=== PATIENT | female | born 1950 | race Caucasian/White ===

== ENCOUNTER → 2017-02-27 | Outpatient (CLI) | payer MEDICARE, OTHER ==
[~2017-02-27] MED LIST: CLEOCIN150 MG PO; MOTRIN800 MG PO
== END | disposition home or self-care (01) ==
LOC: RAD 14:34
DX: R05 Cough (principal)

== ENCOUNTER → 2017-09-01 | Outpatient (CLI) | payer MEDICARE, OTHER ==
[~2017-09-01] MED LIST changes: +ASPIR 8181 MG PO; +ATENOLOL25 MG PO; +B COMPLEX1 EACH PO; +CALCIUM 1,0001 EACH PO; +COZAAR25 M1 PO; +FISH OIL 1,0001 EAC5 PO; +LOVASTATIN20 MG PO; +VITAMIN D31000 UNI1 PO
--- NOTE | ~2017-09-01 | ST ---
[place], [place] EXERCISE STRESS TEST REPORT NAME: [facility]OW[facility]ING [facility]: [id number] UNIT #: [id number] ROOM: DOCTOR: EDUARDA ROSENBERG MD BIRTHDATE: [birth year] DOS: 09/01/2017 LEXISCAN PORTION OF THE LEXISCAN CARDIOLITE Baseline cardiogram, sinus rhythm. With Lexiscan, no new EKG changes. No chest pain. Blood pressure and heart rate response was normal. Nuclear images will be reported separately. EDUARDA ROSENBERG MD CM:STRESS:EXERCISE STRESS TEST REPORT [id number] EDUARDA ROSENBERG MD
== END | disposition home or self-care (01) ==
LOC: CARD 03:21
DX: R06.02 Shortness of breath (principal); R07.9 Chest pain, unspecified; R55 Syncope and collapse; Z87.898 Personal history of other specified conditions

== ENCOUNTER 2017-12-03 16:20 | Inpatient (IN) | payer MEDICARE, OTHER ==
[~2017-12-03] VITALS: Ht 167.6 cm; Wt 84.2 kg
--- NOTE | ~2017-12-03 | PROC NOTE ---
[place], [place] PROCEDURE NOTE NAME: JENNIFER BOWLING [facility] #: [id number] UNIT #: [id number] ROOM: 407 DOCTOR: AMEENA BLANKENSHIP BIRTHDATE: [birth year] DOS: 12/04/2017 ORDERING PHYSICIAN: Angel Bui DO HISTORY: The patient is a 66-year-old female admitted to the Emergency Department on 12/03/2017 with headache and viral symptoms for 3-4 days in addition to subjective fevers, chills, shortness of breath and nonproductive cough. The patient has primary diagnosis of pneumonia and secondary diagnoses of hypertension, arthritis and shortness of breath. Patient interviewed prior to MBS. She denied having any difficulty swallowing with solids or liquids. She is a current smoker and denies any unexpected weight loss. Oral mechanical exam showed labial and lingual strength and range of motion within functional limits in addition to strong volitional throat clear. METHODS AND MATERIALS USED FOR EXAM: The patient was positioned in the lateral plane and the exam was viewed under fluoroscopy. A variety of substances were used during this examination including barium coated applesauce, barium coated turkey sandwich, nectar- like liquid barium, and thin liquid barium. The patient was self-fed and all liquids were administered via cup. ORAL PHASE: The patient demonstrated an oral phase that was within functional limits. Mastication of the bolus, lingual coordination and AP transfer was within functional limits. She demonstrated good control of the bolus and had a timely oral phase. The patient able to clear oral cavity with one swallow and no oral residue was remaining following all trials. PHARYNGEAL PHASE: The patient demonstrated pharyngeal phase that was within functional limits. Initiation of pharyngeal swallow slightly delayed to the level of the vallecula on sips of thin liquid barium; however, no penetration aspiration observed with all trial consistencies. The patient passed bolus with single swallows and no pharyngeal residues remained. The patient demonstrated naturally large sip sizes, but no penetration aspiration observed. ESOPHAGEAL PHASE: This phase was not formally assessed during the examination. IMPRESSION: This patient presents with a swallow that is within functional limits. Oral and pharyngeal phase is functional for regular diet as demonstrated during evaluation. RECOMMENDATIONS: The patient recommended regular diet with thin liquids. The patient to utilize safe swallowing strategies of small, single sips of liquid and small bites throughout a meal, sit upright during all p.o. intake. No Speech Therapy followup is needed as the patient presents with a functional swallow. Please contact Speech Therapy with any questions. Thank you for your consultation. [place], [place] PROCEDURE NOTE NAME: JENNIFER BOWLING UNIT #: [id number] ROOM: [facility] DOCTOR: AMEENA BLANKENSHIP BIRTHDATE: [birth year] Ameena Blankenship ANGEL BUI DO CM:PROCNOTE:PROCEDURE NOTE [id number] ANGEL JOHNSON
--- NOTE | ~2017-12-03 | EKG ---
[place], [place] ELECTROCARDIOGRAM REPORT NAME: JENNIFER BOWLING UNIT #: [id number] ROOM: 407 DOCTOR: ARLIN DRAFT REPORT BIRTHDATE: [birth year] [facility] Test Date: 2017-12-03 Test Time: 16:49:04 Pat Name: JENNIFER BOWLING Department: Room: 407 Gender: F Polymer Chemist: SHAWNA : 1950 Requested By: KAREN WILCOX Order Number: [id number] Reading MD: Anjelica Raman MD Measurements Intervals [place] Rate: 81 P: 34 NM: 60 QRS: 7 QRSD: 101 T: 45 QT: 462 QTc: 537 Interpretive Statements Sinus rhythm Supraventricular bigeminy Short NM interval Left atrial enlargement RSR' in V1 or V2, probably normal variant Electronically Signed On 12-07-2017 13:54:29 PDT by Anjelica Raman MD CM:EKGRPT:ELECTROCARDIOGRAM REPORT [id number] KAREN BACK DRAFT REPORT KAREN WILCOX DO
[2017-12-03 16:24] VITALS: BP 99/48
[2017-12-03 17:01] LABS: BASO % 0.3 % (0.0-1.0); EOS % 0.1 % (1.0-4.0); HEMATOCRIT 36.2 % (37.0-47.0); HEMOGLOBIN 12.1 g/dl (12.0-16.0); LYMPH # 0.8 10*3/uL (1.3-4.4); LYMPH % 5.5 % (27.0-41.0); MEAN CORPUSCULAR HGB 28.7 pg (27.0-31.0); MEAN CORPUSCULAR HGB CONC 33.4 g/dl (33.0-37.0); MEAN PLATELET VOLUME 10.6 fl (9.6-12.3); MONO # 0.7 10*3/uL (0.1-1.0); MONO % 4.7 % (3.0-9.0); NEUT # 12.3 10*3/uL (2.3-7.9); NEUT % 88.4 % (47.0-73.0); PLATELET COUNT AUTOMATED 166 10*3/uL (130-400); RED BLOOD COUNT 4.21 10*6/uL (4.10-5.10); WHITE BLOOD COUNT 13.9 10*3/uL (4.8-10.8)
[2017-12-03 17:17] LABS: ACT PARTIAL THROMBO TIME 26.1 SECONDS (20.8-31.5)
[2017-12-03 17:20] LABS: ALBUMIN 2.7 gm/dl (3.1-4.5); ALKALINE PHOSPHATASE 110 U/L (45-117); BUN 20 mg/dl (7-24); CHLORIDE 102 mmol/L (98-107); CREATININE 1.85 mg/dL (0.55-1.02); LIPASE 121 U/L (73-393); POTASSIUM 3.2 mmol/L (3.5-5.1); SGOT/AST 11 IU/L (3-35); SGPT/ALT 15 U/L (12-78); SODIUM 133 mmol/L (136-145)
[2017-12-03 17:21] LABS: TROPONIN I < 0.015 ng/ml (<0.045)
[2017-12-03 19:45] VITALS: BP 117/74
[2017-12-03 20:00] VITALS: BP 117/74
[2017-12-04] VITALS: BP 129/58
[2017-12-04 06:13] LABS: HEMATOCRIT 37.7 % (37.0-47.0); HEMOGLOBIN 12.3 g/dl (12.0-16.0); MEAN CELL VOLUME 87.7 fl (81.0-99.0); MEAN CORPUSCULAR HGB 28.6 pg (27.0-31.0); MEAN CORPUSCULAR HGB CONC 32.6 g/dl (33.0-37.0); MEAN PLATELET VOLUME 11.2 fl (9.6-12.3); PLATELET COUNT AUTOMATED 180 10*3/uL (130-400); RED CELL DISTRI WIDTH 13.1 % (0-14.5); WHITE BLOOD COUNT 12.6 10*3/uL (4.8-10.8)
[2017-12-04 06:14] LABS: CREATININE 1.6 mg/dL (0.55-1.02); FREE T4 1.13 ng/dl (0.76-1.46)
[2017-12-04 06:21] LABS: THYROID STIM HORMONE (HS) 0.272 uIU/ml (0.358-4.75)
[2017-12-04 06:23] LABS: POTASSIUM 4.1 mmol/L (3.5-5.1)
[2017-12-04 06:57] LABS: TOTAL CELLS COUNTED 100 #CELLS
[2017-12-04 07:02] LABS: PLATELET SUFFICIENCY NORMAL (NORMAL)
[2017-12-04 07:17] LABS: BILIRUBIN NEGATIVE (NEGATIVE); BLOOD TRACE-INTACT (NEGATIVE); CLARITY CLEAR (CLEAR); COLOR YELLOW (YELLOW); GLUCOSE NEGATIVE (NEGATIVE); KETONE NEGATIVE (NEGATIVE); LEUKO ESTERASE NEGATIVE (NEGATIVE); NITRITE NEGATIVE (NEGATIVE)
[2017-12-04 07:25] LABS: BACTERIA TRACE; EPITHELIAL CELLS 0-2
[2017-12-04 09:37] LABS: VITAMIN D, 25-HYDROXY 84.3 ng/mL (30-100)
[2017-12-04 12:00] VITALS: BP 113/60
[2017-12-04 16:00] VITALS: BP 114/68
[2017-12-04 20:00] VITALS: BP 136/67
[2017-12-05] VITALS: BP 116/68
[2017-12-05 06:09] LABS: BASO % 0.2 % (0.0-1.0); HEMOGLOBIN 10.3 g/dl (12.0-16.0); LYMPH # 1.4 10*3/uL (1.3-4.4); LYMPH % 11.3 % (27.0-41.0); MEAN CELL VOLUME 87.9 fl (81.0-99.0); MEAN CORPUSCULAR HGB 28.3 pg (27.0-31.0); MEAN CORPUSCULAR HGB CONC 32.2 g/dl (33.0-37.0); MEAN PLATELET VOLUME 11.3 fl (9.6-12.3); MONO # 0.7 10*3/uL (0.1-1.0); MONO % 5.5 % (3.0-9.0); NEUT # 10.4 10*3/uL (2.3-7.9); NEUT % 82.4 % (47.0-73.0); PLATELET COUNT AUTOMATED 174 10*3/uL (130-400); RED BLOOD COUNT 3.64 10*6/uL (4.10-5.10); RED CELL DISTRI WIDTH 13.3 % (0-14.5); WHITE BLOOD COUNT 12.6 10*3/uL (4.8-10.8)
[2017-12-05 06:24] LABS: CREATININE 1.34 mg/dL (0.55-1.02); POTASSIUM 4.1 mmol/L (3.5-5.1)
[2017-12-05 08:00] VITALS: BP 125/60
[2017-12-05 12:00] VITALS: BP 127/56
[2017-12-05 16:00] VITALS: BP 131/60
[2017-12-05 20:00] VITALS: BP 129/70
[2017-12-06] VITALS: BP 119/60
[2017-12-06 06:25] LABS: BASO % 0.3 % (0.0-1.0); EOS # 0.1 10*3/uL (0.0-0.4); EOS % 1.6 % (1.0-4.0); HEMATOCRIT 31.9 % (37.0-47.0); HEMOGLOBIN 10.1 g/dl (12.0-16.0); LYMPH # 1.9 10*3/uL (1.3-4.4); LYMPH % 27.4 % (27.0-41.0); MEAN CELL VOLUME 89.9 fl (81.0-99.0); MEAN CORPUSCULAR HGB 28.5 pg (27.0-31.0); MEAN CORPUSCULAR HGB CONC 31.7 g/dl (33.0-37.0); MEAN PLATELET VOLUME 10.7 fl (9.6-12.3); MONO # 0.5 10*3/uL (0.1-1.0); NEUT # 4.4 10*3/uL (2.3-7.9); NEUT % 62.8 % (47.0-73.0); PLATELET COUNT AUTOMATED 174 10*3/uL (130-400); RED BLOOD COUNT 3.55 10*6/uL (4.10-5.10); RED CELL DISTRI WIDTH 13.7 % (0-14.5)
[2017-12-06 06:37] LABS: CREATININE 1.41 mg/dL (0.55-1.02); POTASSIUM 4.5 mmol/L (3.5-5.1)
[2017-12-06 08:00] VITALS: BP 151/76
[2017-12-06] MEDS ORDERED: DOXYCYCLINE100 M3 PO (10:11)
== END 2017-12-06 10:27 | disposition home or self-care (01) | DRG 871 ==
LOC: ED 16:20 → EDHOLD 18:01 → 4E 18:01
PROVIDERS: Emergency Medicine; Internal Medicine
PROC: BD11YZZ Fluoroscopy of Esophagus using Other Contrast (ICD-10-PCS; principal; 2017-12-04)
PROC: BD1BYZZ Fluoroscopy of Mouth/Oropharynx using Other Contrast (ICD-10-PCS; principal; 2017-12-04)
DX: A41.9 Sepsis, unspecified organism (principal); J18.1 Lobar pneumonia, unspecified organism; N17.0 Acute kidney failure with tubular necrosis; E43 Unspecified severe protein-calorie malnutrition; E87.1 Hypo-osmolality and hyponatremia; R65.20 Severe sepsis without septic shock; E87.6 Hypokalemia; G44.209 Tension-type headache, unspecified, not intractable; I95.89 Other hypotension; R73.9 Hyperglycemia, unspecified; M19.91 Primary osteoarthritis, unspecified site; I25.10 Atherosclerotic heart disease of native coronary artery without angina pectoris; E55.9 Vitamin D deficiency, unspecified; R00.2 Palpitations; H91.92 Unspecified hearing loss, left ear; I10 Essential (primary) hypertension; E78.00 Pure hypercholesterolemia, unspecified; Z71.6 Tobacco abuse counseling; Z72.0 Tobacco use; Z98.51 Tubal ligation status; Z82.0 Family history of epilepsy and other diseases of the nervous system; Z82.49 Family history of ischemic heart disease and other diseases of the circulatory system; Z88.0 Allergy status to penicillin; Z79.82 Long term (current) use of aspirin; Z79.899 Other long term (current) drug therapy; Z68.29 Body mass index [BMI] 29.0-29.9, adult

== ENCOUNTER → 2017-12-14 | Outpatient (CLI) | payer MEDICARE, OTHER ==
[~2017-12-14] MED LIST changes: +DOXYCYCLINE100 M3 PO; +LEVAQUIN750 M1 PO
== END | disposition home or self-care (01) ==
LOC: RAD 09:24
DX: J18.9 Pneumonia, unspecified organism (principal); I10 Essential (primary) hypertension; I70.0 Atherosclerosis of aorta; M19.012 Primary osteoarthritis, left shoulder; M19.011 Primary osteoarthritis, right shoulder; Z87.891 Personal history of nicotine dependence

== ENCOUNTER 2017-12-18 17:13 | Emergency (ER) | payer MEDICARE, OTHER ==
[~2017-12-18] VITALS: Wt 83.9 kg
--- NOTE | ~2017-12-18 | EKG ---
[place], [place] ELECTROCARDIOGRAM REPORT NAME: JENNIFER BOWLING UNIT #: [id number] ROOM: DOCTOR: EPIPHANY DRAFT REPORT BIRTHDATE: [birth year] [facility] Test Date: 2017-12-18 Test Time: 17:41:13 Pat Name: JENNIFER BOWLING Department: ER Room: 12 Gender: F Verify Rep: Lauren Alejandre : 1950 Requested By: TALYA VILLAGRAN PA-C Order Number: [id number] Reading MD: Anjelica Raman MD Measurements Intervals [place] Rate: 61 P: 29 AR: 171 QRS: 5 QRSD: 94 T: 24 QT: 402 QTc: 405 Interpretive Statements Sinus rhythm Compared to ECG 12/03/2017 16:49:04 Atrial premature complex(es) no longer present Short AR interval no longer present Atrial abnormality no longer present Electronically Signed On 12-24-2017 14:21:04 PST by Anjelica Raman MD CM:EKGRPT:ELECTROCARDIOGRAM REPORT [id number] TALYA VILLAGRAN PA-C EPIPHANY DRAFT REPORT TALYA VILLAGRAN PA-C
[~2017-12-18 17:13] MED LIST changes: -LEVAQUIN750 M1 PO
[2017-12-18 17:45] LABS: BASO # 0.1 10*3/uL (0.0-0.1); BASO % 0.5 % (0.0-1.0); EOS # 0.1 10*3/uL (0.0-0.4); EOS % 0.9 % (1.0-4.0); HEMATOCRIT 36.9 % (37.0-47.0); HEMOGLOBIN 12.2 g/dl (12.0-16.0); LYMPH # 2.7 10*3/uL (1.3-4.4); LYMPH % 26.7 % (27.0-41.0); MEAN CELL VOLUME 87.9 fl (81.0-99.0); MEAN CORPUSCULAR HGB CONC 33.1 g/dl (33.0-37.0); MEAN PLATELET VOLUME 10.3 fl (9.6-12.3); MONO # 0.5 10*3/uL (0.1-1.0); MONO % 4.9 % (3.0-9.0); NEUT # 6.6 10*3/uL (2.3-7.9); NEUT % 66.6 % (47.0-73.0); PLATELET COUNT AUTOMATED 280 10*3/uL (130-400); RED CELL DISTRI WIDTH 13.5 % (0-14.5); WHITE BLOOD COUNT 9.9 10*3/uL (4.8-10.8)
[2017-12-18 18:00] LABS: ALBUMIN 3.2 gm/dl (3.1-4.5); ALKALINE PHOSPHATASE 110 U/L (45-117); BUN 14 mg/dl (7-24); CHLORIDE 101 mmol/L (98-107); CREATININE 1.31 mg/dL (0.55-1.02); POTASSIUM 3.8 mmol/L (3.5-5.1); SGOT/AST 15 IU/L (3-35); SGPT/ALT 18 U/L (12-78); SODIUM 133 mmol/L (136-145); TOTAL PROTEIN 7.4 gm/dL (6.4-8.2)
[2017-12-18 18:04] LABS: TROPONIN I < 0.015 ng/ml (<0.045)
[2017-12-18] MEDS ORDERED: LEVAQUIN750 M1 PO (18:41)
== END 2017-12-18 18:51 | disposition home or self-care (01) ==
LOC: ED 17:13
PROVIDERS: Physician Assistant
DX: J18.9 Pneumonia, unspecified organism (principal); R79.1 Abnormal coagulation profile; Z88.0 Allergy status to penicillin; Z79.899 Other long term (current) drug therapy; Z79.82 Long term (current) use of aspirin; Z87.891 Personal history of nicotine dependence

== ENCOUNTER → 2018-01-20 | Outpatient (CLI) | payer MEDICARE, OTHER ==
[~2018-01-20] MED LIST changes: +LEVAQUIN750 M1 PO
== END | disposition home or self-care (01) ==
LOC: RAD 14:22
DX: R06.02 Shortness of breath (principal); R09.89 Other specified symptoms and signs involving the circulatory and respiratory systems; J18.1 Lobar pneumonia, unspecified organism; I10 Essential (primary) hypertension; F17.210 Nicotine dependence, cigarettes, uncomplicated

== ENCOUNTER → 2020-09-18 | Outpatient (CLI) | payer MEDICARE, OTHER ==
[~2020-09-18] MED LIST changes: +GOOD SENSE ASP325 MG PO; +LOSARTAN POTASS50 M1 PO
== END | disposition home or self-care (01) ==
LOC: CARD 00:24
PROVIDERS: ATTEND Internal Medicine Cardiovascular Disease
DX: I49.9 Cardiac arrhythmia, unspecified (principal); R53.81 Other malaise; R94.31 Abnormal electrocardiogram [ECG] [EKG]

== ENCOUNTER → 2023-07-01 | Outpatient (CLI) | payer MEDICARE, OTHER ==
[2023-07-01 09:07] LABS: BASO # 0.1 10*3/uL (0.0-0.1); BASO % 0.7 % (0.0-1.0); EOS # 0.5 10*3/uL (0.0-0.4); EOS % 7.4 % (1.0-4.0); HEMATOCRIT 41.1 % (37.0-47.0); LYMPH # 2.4 10*3/uL (1.3-4.4); LYMPH % 32.7 % (27.0-41.0); MEAN CELL VOLUME 90.9 fl (81.0-99.0); MEAN CORPUSCULAR HGB CONC 31.9 g/dl (33.0-37.0); MEAN PLATELET VOLUME 10.2 fl (9.6-12.3); MONO # 0.4 10*3/uL (0.1-1.0); MONO % 5.8 % (3.0-9.0); NEUT # 3.9 10*3/uL (2.3-7.9); NEUT % 53.1 % (47.0-73.0); PLATELET COUNT AUTOMATED 238 10*3/uL (130-400); RED BLOOD COUNT 4.52 10*6/uL (4.10-5.10); RED CELL DISTRI WIDTH 12.9 % (0-14.5); WHITE BLOOD COUNT 7.3 10*3/uL (4.8-10.8)
[2023-07-01 10:03] LABS: POTASSIUM 4.5 mmol/L (3.4-5.1); TOTAL PROTEIN 6.2 gm/dL (6.0-8.0)
== END | disposition home or self-care (01) ==
LOC: LAB 08:53
PROVIDERS: ATTEND Nurse Practitioner Family
DX: M41.86 Other forms of scoliosis, lumbar region (principal); M48.07 Spinal stenosis, lumbosacral region; I10 Essential (primary) hypertension; E78.5 Hyperlipidemia, unspecified

== ENCOUNTER → 2024-05-18 | Outpatient (CLI) | payer MEDICARE, OTHER ==
[2024-05-18 12:07] LABS: BASO # 0.1 10*3/uL (0.0-0.1); BASO % 0.8 % (0.0-1.0); EOS # 0.6 10*3/uL (0.0-0.4); HEMATOCRIT 40.3 % (37.0-47.0); MEAN CELL VOLUME 88.8 fl (81.0-99.0); MEAN CORPUSCULAR HGB 29.5 pg (27.0-31.0); MEAN CORPUSCULAR HGB CONC 33.3 g/dl (33.0-37.0); MEAN PLATELET VOLUME 10.2 fl (9.6-12.3); MONO # 0.4 10*3/uL (0.1-1.0); MONO % 6.5 % (3.0-9.0); NEUT # 3.5 10*3/uL (2.3-7.9); NEUT % 57.4 % (47.0-73.0); PLATELET COUNT AUTOMATED 200 10*3/uL (130-400); RED BLOOD COUNT 4.54 10*6/uL (4.10-5.10); RED CELL DISTRI WIDTH 13.4 % (0-14.5); WHITE BLOOD COUNT 6.1 10*3/uL (4.8-10.8)
[2024-05-18 12:33] LABS: POTASSIUM 4.9 mmol/L (3.4-5.1)
== END | disposition home or self-care (01) ==
LOC: LAB 11:38
PROVIDERS: ATTEND Otolaryngology
DX: Z01.818 Encounter for other preprocedural examination (principal); E04.1 Nontoxic single thyroid nodule

== ENCOUNTER → 2024-08-22 | Outpatient (CLI) | payer MEDICARE, OTHER | END | disposition home or self-care (01) | LOC: LAB 09:45 | PROVIDERS: ATTEND Otolaryngology | DX: E04.1 Nontoxic single thyroid nodule (principal) ==